=== PATIENT | male | born 1985 | race Caucasian/White ===

== ENCOUNTER 2016-12-31 16:09 | Emergency (ER) | payer OTHER ==
[~2016-12-31] VITALS: Ht 180.3 cm; Wt 83.9 kg
[~2016-12-31 16:09] MED LIST: CEPH500C PO; CYCL10TA9 PO; HYDR-707 PO; NAPR-243 PO; OSLT75CRX PO
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
[2016-12-31 17:33] VITALS: BP 122/68
== END 2016-12-31 17:33 | disposition home or self-care (01) ==
LOC: EDUNIT# 16:09 → ER 16:12
DX: S93.402A Sprain of unspecified ligament of left ankle, initial encounter (principal); J45.909 Unspecified asthma, uncomplicated; F17.210 Nicotine dependence, cigarettes, uncomplicated; X50.0XXA Overexertion from strenuous movement or load, initial encounter
CPT/HCPCS: 99283

== ENCOUNTER 2018-01-10 17:16 | Emergency (ER) | payer SELFPAY ==
[~2018-01-10] VITALS: Ht 180.3 cm; Wt 83.0 kg
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
[2018-01-10 18:05] VITALS: BP 153/80
--- OUTSIDE RECORDS SUMMARY | 2018-01-10 19:08 | XMS REPORT ---
Author Author JOANNA CRUZ [facility] Address Unknown Care Team Providers Care Foundation Assistant Name Role Phone JOANNA CRUZ Unavailable PROBLEMS Unknown Problems ALLERGIES Substance Reaction Event Type Date Status Penicillin V Potassium Unknown Drug Allergy Feb, Active ENCOUNTERS Encounter Location Date Diagnosis [place] [address] [address] Jul, Viral URI J06.9 [facility] [address] [id number] Mar, Dental caries K02.9 [facility] [address] [id number] Feb, Dental examination Z01.20 [place] [address] [address] November, Right foot pain M79.671 [place] [address] [address] Jun, Gastroenteritis K52.9 [place] [address] [address] Mar, Laceration T14.8 and Seasonal allergic rhinitis due to pollen J30.1 [place] [address] [address] [place] [id number] [place] [address] November, Right hand pain M79.641 [place] [address] [address] Sep, Gastroenteritis K52.9 [facility] [address] [place] [id number] [place] [address] Sep, Gastroenteritis K52.9 [place] [address] [address] [place] [address] 16 Jun, 2015 Upper respiratory infection J06.9 [facility] [address] [place] [id number] [place] [address] May, Upper respiratory infection J06.9 [facility] [address] [address] Apr, Nausea & vomiting R11.2 [facility] [address] [place] [id number] [place] [address] 05 Dec, 2014 Contusion of left foot 924.20 [facility] [address] [place] [id number] [place] [address] November, Vomiting 787.03 [facility] [address] [place] [id number] [place] [address] Oct, [facility] [address] [place] [id number] [place] [address] Oct, [facility] [address] [place] [id number] [place] [address] Sep, [facility] [address] [place] [id number] [place] [address] Sep, [facility] [address] [place] [address] Sep, [facility] [id number] [place] [address] Aug, [facility] [address] [address] Aug, [facility] [address] [place] [id number] [place] [address] Aug, [facility] [address] [place] [id number] [address] May, [facility] [address] [place] [address] May, [facility] [address] [id number] [place] [address] Apr, [facility] [address] [id number] [place] [address] Apr, [facility] [address] [facility] [id number] [place] [address] Apr, [facility] [address] [id number] [place] [address] Apr, [facility] [address] [id number] [place] [address] Mar, [facility] [address] [facility] [id number] [place] [address] Mar, [facility] [address] [facility] [id number] [place] [address] Mar, [facility] [address] [facility] [id number] [address] Jan, [facility] [address] [facility] [id number] [address] Oct, [facility] [address] [facility] [id number] [address] Sep, [facility] [address] [facility] [id number][place] [address] Aug, [facility] [address] [facility] [id number] [address] Aug, [facility] [address] [facility] [id number] [address] Jun, [facility] [address] [facility] [id number] [address] Jun, [facility] [address] [facility] [id number] [address] Apr, IMMUNIZATIONS No Known Immunizations SOCIAL HISTORY Never Assessed REASON FOR VISIT KYLIE PLAN OF CARE Activity Details Follow Up 2 Weeks Reason:Reevaluate #20/Possible Extraction VITAL SIGNS Height 71 in 2017-03-22 Blood pressure systolic 129 mmHg 2017-03-22 Blood pressure diastolic 75 mmHg 2017-03-22 MEDICATIONS Medication Instructions Dosage Frequency Start Date End Date Duration Status Clindamycin HCl 150 MG Orally every 6 hrs 2 capsules 6h 6 Mar, 2017 7 days Active RESULTS No Results PROCEDURES Procedure Date Ordered Result Body Site LTD ORAL EVALUATION - PROBLEM FOCUS Mar 22, 2017 INTRAORL-PERIAPICAL 1 FILM [id number] Mar 22, 2017 BITEWING - SINGLE FILM Mar 22, 2017 INSTRUCTIONS MEDICATIONS ADMINISTERED No Known Medications MEDICAL (GENERAL) HISTORY Type Description Date Surgical History orthopedic surgery - right wrist 2009
--- OUTSIDE RECORDS SUMMARY | 2018-01-10 19:09 | XMS REPORT ---
Author Author GENEVA PALOMO [facility] Address [address] [place] [address] Care Team Providers Care Call Manager Name Role Phone GENEVA PALOMO Unavailable PROBLEMS Unknown Problems ALLERGIES Substance Reaction Event Type Date Status Penicillin V Potassium Unknown Drug Allergy November, Active SOCIAL HISTORY Never Assessed PLAN OF CARE Activity Details Follow Up prn Reason: VITAL SIGNS Height 71 in 2016-12-01 Weight 185.8 lbs 2016-12-01 Temperature 98.4 degrees Fahrenheit 2016-12-01 Heart Rate 76 bpm 2016-12-01 Respiratory Rate 18 2016-12-01 BMI 25.91 kg/m2 2016-12-01 Blood pressure systolic 126 mmHg 2016-12-01 Blood pressure diastolic 64 mmHg 2016-12-01 MEDICATIONS No Known Medications RESULTS Name Result Date Reference Range Xray : Foot, Right 2 views (IN HOUSE) 2016-12-01 PROCEDURES Procedure Date Ordered Result Body Site X-RAY EXAM OF FOOT December 01, 2016 IMMUNIZATIONS No Known Immunizations MEDICAL (GENERAL) HISTORY Type Description Date Surgical History orthopedic surgery - right wrist 2009
--- OUTSIDE RECORDS SUMMARY | 2018-01-10 19:09 | XMS REPORT ---
Author Author GENEVA PALOMO [facility] Address [address] [place] [address] Care Team Providers Care Emergency Detail Driver Name Role Phone GENEVA PALOMO Unavailable PROBLEMS Unknown Problems ALLERGIES Substance Reaction Event Type Date Status Penicillin V Potassium Unknown Drug Allergy Jun, Active SOCIAL HISTORY No smoking Hx information available PLAN OF CARE Activity Details Follow Up prn Reason: VITAL SIGNS Height 71 in 2016-07-19 Weight 185.4 lbs 2016-07-19 Temperature 98.4 degrees Fahrenheit 2016-07-19 Heart Rate 72 bpm 2016-07-19 Respiratory Rate 18 2016-07-19 BMI 25.86 kg/m2 2016-07-19 Blood pressure systolic 118 mmHg 2016-07-19 Blood pressure diastolic 82 mmHg 2016-07-19 MEDICATIONS No Known Medications RESULTS No Results PROCEDURES Procedure Date Ordered Related Diagnosis Body Site Office Visit, Est Pt., Level 2 Jul 19, 2016 IMMUNIZATIONS No Known Immunizations
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
--- OUTSIDE RECORDS SUMMARY | 2018-01-10 19:09 | XMS REPORT ---
Author Author JOANNA CRUZ [facility] Address Unknown Care Team Providers Care Etl Architect Name Role Phone JOANNA CRUZ Unavailable PROBLEMS Unknown Problems ALLERGIES Substance Reaction Event Type Date Status Penicillin V Potassium Unknown Drug Allergy Mar, Active seasonal Unknown Non Drug Allergy Mar, Active ENCOUNTERS Encounter Location Date Diagnosis [place] [address] [address] Jul, Viral URI J06.9 [facility] [address] [id number] Mar, Dental caries K02.9 [facility] [address] [id number] Feb, Dental examination Z01.20 [place] [address] [address] November, Right foot pain M79.671 [place] [address] [address] Jun, Gastroenteritis K52.9 [place] [address] [address] Mar, Laceration T14.8 and Seasonal allergic rhinitis due to pollen J30.1 [place] [address] [place] [id number] [place] [address] November, Right hand pain M79.641 [place] [address] [address] Sep, Gastroenteritis K52.9 [place] [address] [place] [id number] [place] [address] Sep, Gastroenteritis K52.9 [place] [address] [address] Jun, Upper respiratory infection J06.9 [facility] [address] [place] [id number] [place] [address] May, Upper respiratory infection J06.9 [facility] [address], [place] [address] Apr, Nausea & vomiting R11.2 [facility] [address] [place] [id number], [place] [address] 05 Dec, 2014 Contusion of left foot 924.20 [facility] [address] [place] [id number] [place] [address] November, Vomiting 787.03 [facility] [address] [place] [address] Oct, [facility] [address] [place] [id number] [place] [address] Oct, [facility] [address], [place] [address] Sep, [facility] [address] [place] [address] Sep, [facility] [address], [place] [address] Sep, [facility] [address] [address] Aug, [facility] [address] [address] Aug, [facility] [address], [place] [address] Aug, [facility] [address], [place] [address] May, [facility] [address] [place] [id number] [place] [address] May, [facility] [address] [facility] [id number] [place] [address] Apr, [facility] [address] [facility] [id number] [address] Apr, [facility] [address], [place] [address] Apr, [facility] [address] [facility] [id number], [place] [address] Apr, [facility] [address] [facility] [id number] [place] [address] Mar, [facility] [address] [facility] [id number], [place] [address] Mar, [facility] [address], [place] [address] Mar, [facility] [address] [place] [id number], [place] [address] Jan, [facility] [address], [place] [address] Oct, [facility] [address], [place] [address] Sep, [facility] [address] [place] [id number], [place] [address] Aug, [facility] [address] [facility] [id number], [place] [address] Aug, [facility] [address] [place] [id number] [address] Jun, [facility] [address] [facility] [id number], [place] [address] Jun, [facility] [address] [place] [id number], [place] [address] Oct, 2008 IMMUNIZATIONS No Known Immunizations SOCIAL HISTORY Never Assessed REASON FOR VISIT 2 WK EVAL W/ POSSIBLE TE PLAN OF CARE Activity Details Follow Up prn Reason:As needed VITAL SIGNS Height 71 in 2017-04-06 Blood pressure systolic 137 mmHg 2017-04-06 Blood pressure diastolic 77 mmHg 2017-04-06 MEDICATIONS No Known Medications RESULTS No Results PROCEDURES Procedure Date Ordered Result Body Site EXTRAC ERUPTED TOOTH/EXPOSED ROOT Apr 06, 2017 INSTRUCTIONS MEDICATIONS ADMINISTERED No Known Medications MEDICAL (GENERAL) HISTORY Type Description Date Surgical History orthopedic surgery - right wrist 2009
== END 2018-01-10 18:08 | disposition home or self-care (01) ==
LOC: EDUNIT# 17:16 → ER 17:17
DX: S61.012A Laceration without foreign body of left thumb without damage to nail, initial encounter (principal); J45.909 Unspecified asthma, uncomplicated; Z87.828 Personal history of other (healed) physical injury and trauma; Z88.0 Allergy status to penicillin; W26.0XXA Contact with knife, initial encounter
CPT/HCPCS: 29130

== ENCOUNTER → 2018-04-25 | Emergency (ER) | payer BC, OTHER ==
[~2018-04-25] VITALS: Ht 180.3 cm; Wt 82.6 kg
[~2018-04-25] MED LIST changes: +BSS 15 ML IR ONE; +FLUORESCEIN (FLUOR-I-STRIPS) 1 MG STRP OU ONE; +POLY/TRIMETH (POLYTRIM) OPHTH 10 ML BTL OU ONE; +TETRACAINE 0.5% OPHTH SOLN 4 ML BTL (SINGLE DOSE ONLY) OU ONE
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
[2018-04-25 19:52] VITALS: BP 132/73
== END | disposition home or self-care (01) ==
LOC: EDUNIT# 17:16 → ER 17:17
DX: H44.002 Unspecified purulent endophthalmitis, left eye (principal); J45.909 Unspecified asthma, uncomplicated; Z88.0 Allergy status to penicillin; Z87.891 Personal history of nicotine dependence
CPT/HCPCS: 99283